=== PATIENT | female | born 1995 | race African-American/Black ===

== ENCOUNTER 2017-09-18 09:36 | Inpatient (IN) ==
[2017-09-18] MEDS ORDERED: MEPERIDINE 50 MG/1 ML VIAL IV PRN (09:54)
[2017-09-18] MEDS ORDERED: ONDANSETRON 4 MG/2 ML VIAL IV PRN ×2 (09:54→16:41)
[2017-09-18] MEDS ORDERED: BUTORPHANOL 2 MG/ML VIAL IV PRN (09:54)
[2017-09-18] MEDS ORDERED: ePHEDrine 50 MG/ML AMP IV PRN (10:00)
[2017-09-18] MEDS ORDERED: hydrOXYzine HCL 25 MG/1 ML VIAL IM PRN (10:00)
[2017-09-18] MEDS ORDERED: PROMETHAZINE 25 MG/1 ML VIAL IM ONE (10:00)
[2017-09-18] MEDS ORDERED: LACTATED RINGERS 1,000 ML IV ONE (10:00)
[2017-09-18] MEDS ORDERED: LACTATED RINGERS 1,000 ML IV SCH (10:00)
[2017-09-18] MEDS ORDERED: CITRIC ACID/SODIUM CITRATE 30 ML UDCUP PO ONE (10:00)
[2017-09-18] MEDS ORDERED: OXYTOCIN/LR 20 UNIT/1,000 ML BAG IV SCH (10:00)
[2017-09-18] MEDS ORDERED: FAMOTIDINE 20 MG/2 ML VIAL IV ONE (10:00)
[2017-09-18] MEDS ORDERED: ONDANSETRON 4 MG/2 ML VIAL IV ONE (10:00)
[2017-09-18] MEDS ORDERED: fentaNYL 2 MCG/ROPIV 0.2% EPID 150 ML EPIDURAL SCH (10:00)
[2017-09-18] MEDS ORDERED: diphenhydrAMINE 50 MG/1 ML VIAL IV PRN ×2 (10:00)
[2017-09-18 10:10] LABS: Basophils # 0.1 10*3/uL (0.0-0.2); Basophils % 0.4 % (0.0-0.8); Eosinophils # 0.3 10*3/uL (0.0-0.87); Eosinophils % 1.8 % (0.00-10.9); Hematocrit 29.3 VOL% (35.7-47.0); Hemoglobin 9.8 GM/DL (12.0-16.0); Immature Granulocytes % 1.1 %; Immature Granulocytes Absolute 0.15 #; Lymphocytes # 3.3 10*3/uL (1.4-4.0); Lymphocytes % 23.9 % (21.3-54.2); Mean Corpuscular HGB Conc 33.4 GM/DL (32-36); Mean Corpuscular Hemoglobin 30 PG (27-34); Mean Corpuscular Volume 88.5 FL (87-102); Mean Platelet Volume 11.9 FL (9.6-12.0); Monocytes # 1.6 10*3/uL (0.11-0.8); Monocytes % 11.3 % (1.7-12.7); Neutrophils # 8.6 10*3/uL (1.4-7.4); Neutrophils % 61.5 % (38.7-73.9); Platelet Count 254 T/CUMM (130-400); Red Blood Count 3.31 MC/CUMM (3.8-5.5); Red Cell Distribution Width 14.2 % (9.3-17.3); White Blood Count 13.9 T/CUMM (4-12)
[2017-09-18 12:01] LABS: Apearance,Urine CLEAR (Clear); Bilirubin,Urine Negative (Negative); Blood, Urine Negative (Negative); Glucose,Urine (UA) Negative (Negative); Ketones,Urine Negative (Negative); Mucus,Urine Occasional /LPF (Occasional); Nitrite,Urine Negative (Negative); Protein,Urine Negative; RBC,Urine 1 /HPF (0-4); Squamous Epithelial Cell,Urine Occasional /HPF (0-10); Urine Color Yellow (Yellow); Urine Urobilinogen < 2.0 EU/DL (0.2-1.0)
[2017-09-18] MEDS ORDERED: miSOPROStol 200 MCG TABLET ONE (15:40)
[2017-09-18] MEDS ORDERED: ACETAMINOPHEN 325 MG TABLET PO PRN (16:41)
[2017-09-18] MEDS ORDERED: HYDROCORTISONE 2.5% RECTAL CREAM 30 GM TUBE TOP PRN (16:41)
[2017-09-18] MEDS ORDERED: WITCH HAZEL PADS 100/JAR TOP PRN (16:41)
[2017-09-18] MEDS ORDERED: DIPH/TET/ACEL PERT BOOSTER VACCINE 0.5 ML VIAL IM ONE (16:41)
[2017-09-18] MEDS ORDERED: MEASLES/MUMPS/RUBELLA VACCINE 0.5 ML VIAL SUBCUT ONE (16:41)
[2017-09-18] MEDS ORDERED: OXYTOCIN/LR 20 UNIT/1,000 ML BAG IV ONE (16:41)
[2017-09-18] MEDS ORDERED: RHO(D) IMMUNE GLOBULIN 300 MCG SYRINGE IM ONE (16:41)
[2017-09-18] MEDS ORDERED: oxyCODONE/ACETAMINOPHEN 5-325 MG TABLET PO PRN (16:41)
[2017-09-18] MEDS ORDERED: BISACODYL 10 MG SUPP RECTAL PRN (16:41)
[2017-09-18] MEDS ORDERED: LANOLIN 50% CREAM 0.3 OZ TUBE TOP PRN (16:41)
[2017-09-18] MEDS ORDERED: BENZOCAINE 20%/MENTHOL 0.5% SPRAY 56 GM CAN TOP PRN (16:41)
[2017-09-18] MEDS: oxyCODONE/ACETAMINOPHEN 5-325 MG TABLET PO PRN (22:28)
[2017-09-19] MEDS: oxyCODONE/ACETAMINOPHEN 5-325 MG TABLET PO PRN ×2 (03:04→08:58)
[2017-09-19] MEDS: IBUPROFEN 800 MG TABLET PO PRN ×2 (03:05→11:03)
[2017-09-19] MEDS: DOCUSATE SODIUM 100 MG CAPSULE PO SCH ×3 (05:15→20:28)
[2017-09-19] MEDS: FERROUS SULFATE 325 MG TABLET PO SCH ×4 (05:15→20:28)
[2017-09-19 06:06] LABS: Basophils % 0.2 % (0.0-0.8); Eosinophils # 0.2 10*3/uL (0.0-0.87); Eosinophils % 1.1 % (0.00-10.9); Hematocrit 21.9 VOL% (35.7-47.0); Hemoglobin 7.8 GM/DL (12.0-16.0); Immature Granulocytes Absolute 0.14 #; Lymphocytes # 1.5 10*3/uL (1.4-4.0); Lymphocytes % 10.9 % (21.3-54.2); Mean Corpuscular HGB Conc 35.6 GM/DL (32-36); Mean Corpuscular Hemoglobin 30 PG (27-34); Mean Platelet Volume 12.2 FL (9.6-12.0); Monocytes # 1.2 10*3/uL (0.11-0.8); Neutrophils # 10.7 10*3/uL (1.4-7.4); Neutrophils % 77.8 % (38.7-73.9); Platelet Count 207 T/CUMM (130-400); Red Blood Count 2.64 MC/CUMM (3.8-5.5); White Blood Count 13.7 T/CUMM (4-12)
[2017-09-19 06:34] LABS: Elliptocytes 1+; Hypochromasia 1+; Microcytosis 1+; Platelet Estimate Normal
[2017-09-19] MEDS: MULTIVITAMIN (PRENATAL) TABLET PO SCH (08:57)
[2017-09-20 07:35] VITALS: BP 105/69
[2017-09-20] MEDS ORDERED: INFLUENZA VIRUS VACCINE 0.5 ML SYRINGE IM ONE (08:00)
[2017-09-20] MEDS: DOCUSATE SODIUM 100 MG CAPSULE PO SCH (09:25)
[2017-09-20] MEDS: MULTIVITAMIN (PRENATAL) TABLET PO SCH (09:25)
[2017-09-20] MEDS: oxyCODONE/ACETAMINOPHEN 5-325 MG TABLET PO PRN (09:25)
[2017-09-20] MEDS: FERROUS SULFATE 325 MG TABLET PO SCH (09:25)
[2017-09-20] MEDS: IBUPROFEN 800 MG TABLET PO PRN (09:26)
== END 2017-09-20 11:40 | disposition home or self-care (01) | DRG 775 ==
LOC: N.LDOUT 09:36 → N.LD 09:43 → N.OB 20:55
PROVIDERS: ADMIT Obstetrics & Gynecology; ATTEND Obstetrics & Gynecology